=== PATIENT | female | born 1945 | race Two or more races ===

== ENCOUNTER 2022-10-26 06:44 | Inpatient (IN) | payer OTHER ==
[~2022-10-26] VITALS: Ht 165.1 cm; Wt 66.5 kg
[2022-10-26 07:21] LABS: Basophils # (auto) 0.2 10 ^3/uL (0-0.2); Basophils % (auto) 1.1 % (0.0-2.0); Eosinophils # (auto) 0 10 ^3/uL (0-0.8); Eosinophils % (auto) 0.2 % (0.0-7.0); Hematocrit 33.4 % (36.0-46.0); Hemoglobin 11.3 g/dL (12.2-16.2); Lymphocytes # (auto) 0.7 10 ^3/uL (0.4-5.4); Lymphocytes % (auto) 5.1 % (10.0-50.0); Mean Corpuscular Hemoglobin 34.1 pg (28.0-32.0); Mean Corpuscular Volume 100.2 fL (80.0-100.0); Monocytes # (auto) 0.8 10 ^3/uL (0-1.3); Monocytes % (auto) 5.4 % (0.0-12.0); Neutrophils # (auto) 12.6 10 ^3/uL (1.6-8.6); Neutrophils % (auto) 88.2 % (37.0-80.0); Red Blood Cells 3.33 10^6/uL (4.0-5.20); Red Cell Distribution Width 14.1 % (11.8-14.3); White Blood Cell 14.3 10^3/uL (4.4-10.8)
[2022-10-26] MEDS ORDERED: PIPERACILLIN-TAZOB 3.375GM 100 ML IV ONE (08:00)
[2022-10-26 08:03] LABS: INR 0.99 (0.9-1.15); Partial Thromboplastin Time 24.2 sec (24.6-33.4)
[2022-10-26 08:05] LABS: Albumin 4.2 g/dL (3.4-5.0); Calcium 8.7 mg/dL (8.5-10.1)
[2022-10-26 08:08] LABS: BUN/Creatinine Ratio 19.2 (10.0-20.0); Bilirubin, Total 0.6 mg/dL (0.2-1.0); Total Protein 7.2 g/dL (6.4-8.2)
[2022-10-26] MEDS ORDERED: HYDROmorphone HCL 2 MG/ML VL/or syr IV ONE (08:45)
[2022-10-26] MEDS ORDERED: ONDANSETRON HCL 4 MG/2 ML VIAL IV ONE (08:45)
[2022-10-26] MEDS ORDERED: IOHEXOL 350 MG/ML 100ML IJ ONE (09:14)
[2022-10-26] MEDS ORDERED: hydrALAZINE HCL 20 MG/ML VL IV PRN (10:30)
[2022-10-26] MEDS ORDERED: MORPHINE SULFATE INJ 2 MG/ml SYRG IV PRN ×2 (10:30→12:15)
[2022-10-26] MEDS ORDERED: ACETAMINOPHEN 325 MG TAB PO PRN (10:30)
[2022-10-26 10:35] LABS: Urine Bacteria NONE SEEN /hpf (None Seen); Urine Blood Negative /uL (Negative); Urine Hyaline Cast FEW /lpf (0 - 2); Urine Mucus FEW (None Seen); Urine WBC 3 /hpf (0 - 5)
[2022-10-26] MEDS ORDERED: SODIUM CHLORIDE 0.9% 1,000 ML IV ONE ×2 (10:45)
[2022-10-26 11:29] LABS: Cocaine Screen, Urine NEGATIVE (NEGATIVE)
[2022-10-26 11:31] LABS: Amphetamine Screen, Urine NEGATIVE (NEGATIVE); Barbiturate Scree,Urine NEGATIVE (NEGATIVE); Benzodiazephine Screen, Urine NEGATIVE (NEGATIVE); Cannabinoid Screen, Urine NEGATIVE (NEGATIVE); Opiate Scree,Urine NEGATIVE (NEGATIVE); Phencyclidine Screen, Urine NEGATIVE (NEGATIVE)
[2022-10-26] MEDS: cefTRIAXone 1GM/50ML D5W 50 ML IV SCH (12:02)
[2022-10-26] MEDS ORDERED: DOCUSATE SOD 100 MG CAP PO PRN (12:15)
[2022-10-26] MEDS ORDERED: NITROGLYCERIN 0.4 MG SL TAB SL PRN (12:15)
[2022-10-26] MEDS ORDERED: PAR20T PO (12:54)
[2022-10-26] MEDS ORDERED: LISI40TA16 PO (12:54)
[2022-10-26] MEDS ORDERED: ALEN35TA18 PO (12:54)
[2022-10-26] MEDS ORDERED: HYDR12.59 PO (12:54)
[2022-10-26] MEDS ORDERED: SIMV20TA20 PO (12:55)
[2022-10-26 17:14] VITALS: BP 138/58
[2022-10-26 17:20] VITALS: BP 138/58
[2022-10-26] MEDS: HYDROcodone-ACET 5/325MG TAB PO PRN (21:17)
[2022-10-26 22:00] VITALS: BP 126/63
[2022-10-27 05:00] VITALS: BP 142/68
[2022-10-27 06:43] LABS: Basophils # (auto) 0.1 10 ^3/uL (0-0.2); Basophils % (auto) 0.8 % (0.0-2.0); Eosinophils # (auto) 0.2 10 ^3/uL (0-0.8); Eosinophils % (auto) 2.1 % (0.0-7.0); Hematocrit 27.9 % (36.0-46.0); Hemoglobin 9.9 g/dL (12.2-16.2); Lymphocytes # (auto) 0.8 10 ^3/uL (0.4-5.4); Lymphocytes % (auto) 10.9 % (10.0-50.0); Mean Corpuscular Hemoglobin 35.6 pg (28.0-32.0); Mean Corpuscular Hgb Conc. 35.4 g/dL (32.0-36.0); Mean Corpuscular Volume 100.6 fL (80.0-100.0); Monocytes # (auto) 0.9 10 ^3/uL (0-1.3); Monocytes % (auto) 11.7 % (0.0-12.0); Neutrophils # (auto) 5.4 10 ^3/uL (1.6-8.6); Neutrophils % (auto) 74.5 % (37.0-80.0); Nucleated Red Blood Cells % 0.1 %; Red Blood Cells 2.77 10^6/uL (4.0-5.20); White Blood Cell 7.3 10^3/uL (4.4-10.8)
[2022-10-27 06:46] LABS: BUN/Creatinine Ratio 19.3 (10.0-20.0); Calcium 8.2 mg/dL (8.5-10.1); Potassium 3.3 mmol/L (3.5-5.1)
[2022-10-27 08:00] VITALS: BP 132/64
[2022-10-27] MEDS: cefTRIAXone 1GM/50ML D5W 50 ML IV SCH (09:16)
[2022-10-27] MEDS: HYDROcodone-ACET 5/325MG TAB PO PRN ×2 (09:16→17:36)
[2022-10-27] MEDS ORDERED: FOLIC ACID 1 MG TAB PO SCH (10:15)
[2022-10-27] MEDS ORDERED: THIAMINE 100mg/ml INJ (200mg/2ml VIAL) IV SCH (10:15)
[2022-10-27] MEDS ORDERED: THI100I IV ×2 (10:27)
[2022-10-27] MEDS ORDERED: FOLI-119 PO (10:27)
[2022-10-27 12:00] VITALS: BP 117/57
[2022-10-27 15:29] VITALS: BP 132/64
[2022-10-27] MEDS ORDERED: HYDR1TAB97 PO (15:56)
[2022-10-27] MEDS ORDERED: DOCU-94 PO (15:56)
[2022-10-27] MEDS ORDERED: THIA100T5 PO (15:58)
[2022-10-28] MEDS ORDERED: THIAMINE HCL 100 MG TAB PO SCH (10:00)
== END 2022-10-27 17:50 | disposition home health service (06) | DRG 563 ==
LOC: EDBD 06:44 → ER 06:44 → TELE 12:06 → TELE-EAST 15:53
PROVIDERS: ADMIT Internal Medicine; ATTEND Internal Medicine
DX: S42.231A 3-part fracture of surgical neck of right humerus, initial encounter for closed fracture (principal); S06.0XAA Concussion with loss of consciousness status unknown, initial encounter; M48.56XA Collapsed vertebra, not elsewhere classified, lumbar region, initial encounter for fracture; I10 Essential (primary) hypertension; E78.5 Hyperlipidemia, unspecified; W18.39XA Other fall on same level, initial encounter; D72.829 Elevated white blood cell count, unspecified; M81.0 Age-related osteoporosis without current pathological fracture; F10.10 Alcohol abuse, uncomplicated; Y90.9 Presence of alcohol in blood, level not specified; Y93.89 Activity, other specified; Y99.8 Other external cause status; Z88.5 Allergy status to narcotic agent; Z82.49 Family history of ischemic heart disease and other diseases of the circulatory system; Y92.89 Other specified places as the place of occurrence of the external cause; Z82.3 Family history of stroke
CPT/HCPCS: 36415; 70450; 71045; 71275; 72125; 73030; 73200; 80048; 80053; 80307; 81001; 83605; 83735; 83880; 84484; 85025; 85379; 85610; 85730; 87040; 87081; 93005; 93306; 96365; 96375; 97163; G0378; J0696; J2405; J2543